=== PATIENT | male | born 1990 | race Hispanic/Latino ===

== ENCOUNTER → 2017-05-31 | Outpatient (REF) | payer OTHER ==
[2017-05-31 17:12] LABS: INFLUENZA A AMPLIFICATION NEGATIVE (NEGATIVE); INFLUENZA B AMPLIFICATION NEGATIVE (NEGATIVE)
== END ==
LOC: M LAB REF 16:26
DX: Z11.59 Encounter for screening for other viral diseases (principal)
CPT/HCPCS: 87502